=== PATIENT | male | born 1970 | race Caucasian/White ===

== ENCOUNTER → 2020-05-31 | Outpatient (CLI) | payer BC, OTHER | LOC: LAB 08:26 | PROVIDERS: ATTEND Urology | DX: Z30.8 Encounter for other contraceptive management (principal) | CPT/HCPCS: 89321 ==

== ENCOUNTER 2020-07-24 05:32 | Outpatient (RCR) | payer BC ==
[~2020-07-24] VITALS: Ht 193 cm; Wt 86.3 kg
[~2020-07-24 05:32] MED LIST: SULF1TAB34 PO
== END 2020-07-24 09:58 | disposition home or self-care (01) ==
LOC: PREOP 05:32
PROVIDERS: ATTEND Surgery
DX: Z01.818 Encounter for other preprocedural examination (principal); K92.1 Melena; Z20.828 Contact with and (suspected) exposure to other viral communicable diseases
CPT/HCPCS: 87635

== ENCOUNTER 2020-07-25 11:51 | Day surgery (SDC) | payer BC ==
[~2020-07-25] VITALS: Ht 193 cm; Wt 86.3 kg
[2020-07-25] MEDS ORDERED: LACTATED RINGERS 1,000 ML IV ONE (11:53)
[2020-07-25] MEDS ORDERED: LACTATED RINGERS 1,000 ML IV STA (11:53)
[2020-07-25 12:06] VITALS: BP 152/81
[2020-07-25] MEDS ORDERED: MIDAZOLAM 2 MG/2 ML (VERSED) VIAL ONE (14:47)
[2020-07-25] MEDS ORDERED: PROPOFOL INJECTION 50 ML IV ONE (14:47)
[2020-07-25 15:05] VITALS: BP 115/67
--- NOTE | 2020-07-25 15:08 | Progress Note-Post Operative ---
Post-Operative Progess Note Surgeon (s)/Cheese Maker (s) Surgeon SAAD MERCADO DO Cheese Maker: na Pre-Operative Diagnosis blood in stool, change in bowel habits Post-Operative Diagnosis normal colon Procedure & Operative Findings Date of Procedure 07/25/20 Procedure Performed/Findings colonoscopy Anesthesia Type per mix house operator Estimated Blood Loss Estimated blood loss (mL): none Specimens/Packing Specimens Removed none SAAD MERCADO DO Jul 25, 2020 15:08
--- NOTE | 2020-07-25 15:09 | Discharge Inst-Simple/Standard ---
Discharge Inst-Standard Patient Instructions/Follow Up Plan of Care/Instructions/FU: Deanna as needed. Activity as Tolerated: Yes Discharge Diet: Regular Diet (high fiber) SAAD MERCADO DO Jul 25, 2020 15:09
[2020-07-25 15:10] VITALS: BP 110/72
--- NOTE | 2020-07-25 15:10 | Anesthesia-General Post-Op ---
MAC Patient Condition Mental Status/LOC: Same as Preop Cardiovascular: Satisfactory Nausea/Vomiting: Absent Respiratory: Satisfactory Pain: Controlled Complications: Absent Post Op Complications Complications None Follow Up Care/Instructions Patient Instructions None needed. Anesthesiology Discharge Order Discharge Order Patient is doing well, no complaints, stable vital signs, no apparent adverse anesthesia problems. No complications reported per nursing. BONNIE RICHARDS CRNA Jul 25, 2020 15:10
[2020-07-25 15:30] VITALS: BP 117/84
[2020-07-25 15:40] VITALS: BP 117/84
--- NOTE | 2020-07-25 22:59 | OPERATIVE REPORT ---
DATE OF SERVICE: 07/25/2020 PREOPERATIVE DIAGNOSIS: Change in bowel habits, blood in stool. POSTOPERATIVE DIAGNOSIS: Normal colon. PROCEDURE: Colonoscopy. SURGEON: Saad Huerta DO ANESTHESIA: Per APPLE PICKER. ESTIMATED BLOOD LOSS: None. COMPLICATIONS: None. INDICATIONS: The patient is a 50-year-old male with an episode of blood in stool, had change in bowel habits. He understands risks and benefits of procedure and wished to proceed with procedure. Consent was signed in the chart. DESCRIPTION OF PROCEDURE: The patient was taken to the endoscopy suite, placed in left lateral recumbent position. Timeout was performed. Digital rectal exam was performed. No palpable polyps, masses or ulcerations. Scope was inserted in the rectum, advanced all the way to cecum with minimal difficulty. Prep was adequate. Scope was then slowly retracted back. No polyps, masses or ulcerations in the cecum, ascending, transverse, descending and sigmoid colon. Once in the rectum, scope was retroflexed noting no other pathology. Scope was returned to its normal position, slowly withdrawn until completely removed. The patient tolerated procedure well without any complications, taken to recovery room in stable condition. RECOMMENDATIONS: The patient will need repeat colonoscopy in 10 years unless family history of colon cancer, which then be 5 years. Any issues before that be seen at that time and reevaluate. The patient also recommended high fiber diet. Any worsening of symptoms should be reevaluated at that time. Job ID: [id number] DocumentID: [id number] Dictated Date: 07/25/2020 15:11:21 Fitness Manager Date: 07/25/2020 22:58:52 Dictated By: SAAD HUERTA DO
== END 2020-07-25 15:40 | disposition home or self-care (01) ==
LOC: ENDO 11:51
PROVIDERS: ATTEND Surgery
DX: K92.1 Melena (principal); R19.4 Change in bowel habit

== ENCOUNTER → 2020-08-04 | Outpatient (CLI) | payer BC ==
[~2020-08-04] MED LIST changes: +CATHETER FLUSH 10 ML SYR IV PRN; +HOLD METFORMIN - RECEIVED CONTRAST 20 ML VIAL IV SCH; +IOHEXOL 350 MG/ML 100 ML (OMNIPAQUE 350) VIAL IV ONE; +NS 100 ML (IVPB) BAG IV ONE
[2020-08-04 11:27] LABS: BUN/CREATININE RATIO 12; CREATININE SERUM 1.03 MG/DL (0.60-1.30); GFR ESTIMATED > 60
--- NOTE | 2020-08-04 13:00 | Diagnostic Imaging Report ---
PROCEDURE: CT abdomen and pelvis with and without contrast. TECHNIQUE: Precontrast acquisitions were acquired through the abdomen and pelvis. Multiple contiguous axial images were obtained through the abdomen and pelvis after the administration of intravenous contrast. Auto Exposure Controls were utilized during the CT exam to meet ALARA standards for radiation dose reduction. INDICATION: Liver mass. Study is performed utilizing hemangioma protocol. Correlation is made with outside CT from [facility] performed on 07/27/2020. The lung bases are clear. The liver contains numerable circumscribed low-attenuation lesions throughout the right and left lobe, too small to characterize but most likely cysts. In addition, there is a mass in the posterior and medial right lobe measuring 3.0 x 2.3 cm. This demonstrates peripheral nodular enhancement on the dynamic sequence. This does show filling in and becomes isodense with the liver on the delayed images consistent with hemangioma. Gallbladder is unremarkable. No biliary ductal dilatation is seen. The pancreas and spleen are unremarkable. No adrenal mass is detected. Kidneys are unremarkable. Aorta is non-aneurysmal. No central, retroperitoneal or mesenteric lymphadenopathy is seen. Small and large bowel loops are normal caliber. There is no obstruction. There is no ascites or fluid collection. Bladder is unremarkable. Prostate is unremarkable. No pelvic lymphadenopathy is detected. IMPRESSION: 1. Probable hepatic cysts. 2. Findings consistent with cavernous hemangioma involving the right lobe of the liver. 3. No other significant abnormality in the abdomen or pelvis is identified. Dictated by: Dictated on workstation # [id number]
== END ==
LOC: RAD 10:46
PROVIDERS: ATTEND Surgery
DX: K76.9 Liver disease, unspecified (principal); R16.0 Hepatomegaly, not elsewhere classified
CPT/HCPCS: 36415; 74178; 82565; 84520

== ENCOUNTER 2020-08-25 05:38 | Outpatient (RCR) | payer BC ==
[~2020-08-25] VITALS: Ht 193 cm; Wt 85.3 kg
[~2020-08-25 05:38] MED LIST changes: -CATHETER FLUSH 10 ML SYR IV PRN; +DICY10CA12 PO; -HOLD METFORMIN - RECEIVED CONTRAST 20 ML VIAL IV SCH; -IOHEXOL 350 MG/ML 100 ML (OMNIPAQUE 350) VIAL IV ONE; -NS 100 ML (IVPB) BAG IV ONE; +OMEP10CA5 PO; +PSYL0.4C2 PO; +SILD20TA14 PO
== END 2020-08-28 12:27 | disposition home or self-care (01) ==
LOC: PREOP 05:38
PROVIDERS: ATTEND Surgery
DX: Z01.812 Encounter for preprocedural laboratory examination (principal); K63.89 Other specified diseases of intestine; Z20.822 Contact with and (suspected) exposure to COVID-19
CPT/HCPCS: 87635

== ENCOUNTER 2020-08-29 10:53 | Day surgery (SDC) | payer BC ==
[2020-08-29] VITALS (8 sets, daily range): BP systolic 115–140; BP diastolic 70–83
[~2020-08-29] VITALS: Ht 193 cm; Wt 85.3 kg
[2020-08-29] MEDS ORDERED: LACTATED RINGERS 1,000 ML IV STA (10:57)
[2020-08-29] MEDS ORDERED: LACTATED RINGERS 1,000 ML IV ONE (10:58)
--- NOTE | 2020-08-29 11:33 | Progress Note-Pre Operative ---
Pre-Operative Progress Note H&P Reviewed The H&P was reviewed, patient examined and no changes noted. Date Seen by Provider: Aug 29, 2020 Time Seen by Provider: 11:33 Date H&P Reviewed: Aug 29, 2020 Time H&P Reviewed: 11:33 Pre-Operative Diagnosis: cecal mass SAAD MERCADO DO Aug 29, 2020 11:33
[2020-08-29] MEDS ORDERED: PROPOFOL INJECTION 50 ML IV ONE (11:44)
[2020-08-29] MEDS ORDERED: MIDAZOLAM 2 MG/2 ML (VERSED) VIAL ONE (11:44)
--- NOTE | 2020-08-29 12:26 | Progress Note-Post Operative ---
Post-Operative Progess Note Surgeon (s)/Button Sawyer (s) Surgeon SAAD MERCADO DO Button Sawyer: na Pre-Operative Diagnosis cecal mass Post-Operative Diagnosis sigmoid polyp Procedure & Operative Findings Date of Procedure 08/29/20 Procedure Performed/Findings colonoscopy c hot bx polypectomy sigmoid colon Anesthesia Type per jewelry facer Estimated Blood Loss Estimated blood loss (mL): none Specimens/Packing Specimens Removed colon polyp SAAD MERCADO DO Aug 29, 2020 12:26
--- NOTE | 2020-08-29 12:28 | Anesthesia-General Post-Op ---
MAC Patient Condition Mental Status/LOC: Same as Preop Cardiovascular: Satisfactory Nausea/Vomiting: Absent Respiratory: Satisfactory Pain: Controlled Complications: Absent Post Op Complications Complications None Follow Up Care/Instructions Patient Instructions None needed. Anesthesiology Discharge Order Discharge Order Patient is doing well, no complaints, stable vital signs, no apparent adverse anesthesia problems. No complications reported per nursing. JULIAN DA SILVA CRNA Aug 29, 2020 12:28
--- NOTE | 2020-08-29 12:29 | Discharge Inst-Simple/Standard ---
Discharge Inst-Standard Discharge Medications New, Converted or Re-Newed RX: RX on Chart Patient Instructions/Follow Up Plan of Care/Instructions/FU: 2 weeks Deanna Activity as Tolerated: Yes Discharge Diet: Regular Diet SAAD MERCADO DO Aug 29, 2020 12:29
--- NOTE | 2020-08-29 14:26 | OPERATIVE REPORT ---
DATE OF SERVICE: 08/29/2020 PREOPERATIVE DIAGNOSIS: Cecal mass by ct POSTOPERATIVE DIAGNOSIS: Sigmoid polyp. PROCEDURE: Colonoscopy with hot biopsy polypectomies of sigmoid colon. SURGEON: Saad Huerta DO ANESTHESIA: Per DIRECTOR PROJECT MANAGEMENT. ESTIMATED BLOOD LOSS: None. COMPLICATIONS: None. INDICATIONS: The patient is a 50-year-old male who had previous normal colonoscopy. A CT scan was found to have a questionable cecal mass. Repeat did not demonstrate this, but we discussed risks and benefits of repeating the colonoscopy. He understands and wishes to proceed. Consent was signed in the chart. DESCRIPTION OF PROCEDURE: The patient was taken to the endoscopy suite, placed in left lateral recumbent position. Timeout was performed. Digital rectal exam was performed. There is no palpable polyps, masses or ulcerations. Scope was inserted in the rectum, advanced all the way to cecum with minimal difficulty. Prep was adequate. The cecum had no polyps, masses or ulcerations. The ileocecal valve was intubated. The ileum had no abnormality. Scope was slowly retracted back into the colon. Again, re-inspecting the cecum, no polyps, masses or ulcerations present. Scope was slowly retracted back. There were no polyps, masses or ulcerations within the ascending colon, transverse, descending colon. In the sigmoid colon, a very small polyp was present that was visualized, grasped and hot biopsy polypectomy was performed. Scope was then continuously slowly retracted back in the rectum where it was also retroflexed noting no other pathology. Scope was returned to its normal position, slowly withdrawn until completely removed. The patient tolerated procedure well without any complications, taken to recovery room in stable condition. RECOMMENDATIONS: The patient needs repeat colonoscopy in 5 years. Any issues before that be seen at that time. The patient will follow up to discuss findings. Job ID: [id number] DocumentID: [id number] Dictated Date: 08/29/2020 12:34:16 Reducer Date: 08/29/2020 14:25:10 Dictated By: SAAD HUERTA DO [facility]
== END 2020-08-29 13:30 | disposition home or self-care (01) ==
LOC: ENDO 10:53
PROVIDERS: ATTEND Surgery
DX: K63.5 Polyp of colon (principal); D18.03 Hemangioma of intra-abdominal structures; K76.89 Other specified diseases of liver; M25.552 Pain in left hip; Z80.52 Family history of malignant neoplasm of bladder